=== PATIENT | female | born 1995 | race American Indian/Alaskan Native ===

== ENCOUNTER 2021-03-06 11:10 | Emergency (ER) | payer OTHER ==
[2021-03-06 11:26] VITALS: BP 100/65
--- NOTE | 2021-03-06 12:22 | Emergency Department Report ---
ED Syncope HPI - General Chief Complaint: Syncope Stated Complaint: WEAKNESS Time Seen by Provider: 03/06/21 11:57 Source: patient, RN notes reviewed Exam Limitations: no limitations - History of Present Illness Initial Comments: This is a 25-year-old female nontoxic, well nourished in appearance, no acute signs of distress presents to the ED with c/o of dizziness and headache x4 days. Patient stated she had a [facility]. Patient describes headache as diffuse with level of 8 out of 10. Patient denies thunderclap headache. Patient denies any visual changes. Patient denies worse headache. Patient stated that darkness makes headache better and bright lights make the headache worse. Patient denies any facial drooping or one-sided w eakness. Denies any slurred speech. Patient denies any radiation of pain. Patient denies any other symptoms or complaints. Patient stated the dizziness is worsened with position change. Patient denies any numbness, tingling, headache, stiff neck, chest pain, shortness of breathe, numbness or tingling. Denies any visual changes or blurry vision. Denies any drug allergies. Patient stated has history of syncopal episodes with last episode being last year. Patient brought by EMS and was given 1 L of normal saline which stated that she is feels much better. Timing/Prior Episodes: recent history Precipitating Factors: Positive: lightheadedness, pain. Negative: blurred vision, confusion, diaphoresis, injury, nausea, recent head trauma, rapid heart beat Loss of Consciousness: brief (seconds) Current Symptoms: back to normal, dizziness, headache, lightheadedness. denies: blurred vision, chest pain, diaphoresis, injury, loss of bladder control, loss of bowel control, motionless, nausea, pale, shallow/rapid breathing, weak/absent pulse, weakness - Related Data Allergies/Adverse Reactions: Allergies No Known Allergies Allergy (Unverified 03/06/21 11:25) ED Review of Systems ROS: Stated complaint: WEAKNESS Other details as noted in HPI Comment: All other systems reviewed and negative Constitutional: denies: chills, fever Eyes: denies: eye pain, eye discharge, vision change ENT: denies: ear pain, throat pain Respiratory: denies: cough, shortness of breath, wheezing Cardiovascular: denies: chest pain, palpitations Endocrine: no symptoms reported Gastrointestinal: denies: abdominal pain, nausea, diarrhea Genitourinary: denies: urgency, dysuria, discharge Musculoskeletal: denies: back pain, joint swelling, arthralgia Skin: denies: rash, lesions Neurological: headache, vertigo. denies: weakness, numbness, paresthesias, confusion, abnormal gait Psychiatric: denies: anxiety, depression Hematological/Lymphatic: denies: easy bleeding, easy bruising ED Past Medical Hx - Past Medical History Previous Medical History?: Yes Hx Asthma: Yes - Surgical History Past Surgical History?: No ED Physical Exam - General Limitations: Language Barrier General appearance: alert, in no apparent distress - Head Head exam: Present: atraumatic, normocephalic - Eye Eye exam: Present: normal appearance, PERRL, EOMI - Neck Neck exam: Present: normal inspection, full ROM. Absent: tenderness, meningismus, lymphadenopathy, thyromegaly - Expanded Neck Exam Expanded Neck exam: Absent: tenderness, midline deformity, anterior neck swelling, thyroid mass, carotid bruit, tracheal deviation - Respiratory Respiratory exam: Present: normal lung sounds bilaterally. Absent: respiratory distress, wheezes, rales, rhonchi, stridor, chest wall tenderness, accessory muscle use, decreased breath sounds, prolonged expiratory - Cardiovascular Cardiovascular Exam: Present: regular rate, normal rhythm, normal heart sounds. Absent: bradycardia, tachycardia, irregular rhythm, systolic murmur, diastolic murmur, rubs, gallop - GI/Abdominal GI/Abdominal exam: Present: soft, normal bowel sounds. Absent: distended, tenderness, guarding, rebound, rigid, diminished bowel sounds - Extremities Exam Extremities exam: Present: normal inspection, full ROM, normal capillary refill. Absent: tenderness - Back Exam Back exam: Present: normal inspection, full ROM. Absent: tenderness, CVA tenderness (R), CVA tenderness (L), muscle spasm, paraspinal tenderness, vertebral tenderness, rash noted - Neurological Exam Neurological exam: Present: alert, oriented X3, normal gait - Expanded Neurological Exam Expanded Patient oriented to: Present: person, place, time Cranial nerves: EOM's Intact: Normal, Facial Sensation: Normal Cerebellar function: Finger to Nose: Normal Upper motor neuron: Pronator Drift: Normal, Sensory Extinction: Normal Motor strength exam: RUE: 5, LUE: 5, RLE: 5, LLE: 5 Best Eye Response (Josué): (4) open spontaneously Best Motor Response ([place]): (6) obeys commands Best Verbal Response ([place]): (5) oriented [place] Total: 15 - Psychiatric Psychiatric exam: Present: normal affect, normal mood - Skin Skin exam: Present: warm, dry, intact, normal color. Absent: rash ED Course Vital Signs 03/06/21 11:25 Temperature 99.2 F Pulse Rate 76 Respiratory 16 Rate Blood Pressure 100/65 [Right] O2 Sat by Pulse 98 Oximetry - Reevaluation(s) Reevaluation #1: 03/06/21 12:22 Patient is speaking in full sentences with no signs of distress noted. - Consultations Consultation #1: 03/06/21 14:38 Patient has been consulted with Dr. Pérez V about patient history, physical exam, and labs/imaging results and agrees to ED plan of care and discharge plan of care. ED Medical Decision Making - Lab Data Result diagrams: 03/06/21 12:15 03/06/21 12:15 Lab Results 03/06/21 03/06/21 03/06/21 Range/Units 12:15 12:15 12:15 WBC 6.2 (4.5-11.0) K/mm3 RBC 4.17 (3.65-5.03) M/mm3 Hgb 11.8 (10.1-14.3) gm/dl Hct 35.5 (30.3-42.9) % MCV 85 (79-97) fl MCH 28 (28-32) pg MCHC 33 (30-34) % RDW 13.2 (13.2-15.2) % Plt Count 190 (140-440) K/mm3 Lymph % (Auto) 22.5 (13.4-35.0) % [place] % (Auto) 9.8 H (0.0-7.3) % Eos % (Auto) 0.1 (0.0-4.3) % Baso % (Auto) 1.0 (0.0-1.8) % Lymph # (Auto) 1.4 (1.2-5.4) K/mm3 [place] # (Auto) 0.6 (0.0-0.8) K/mm3 Eos # (Auto) 0.0 (0.0-0.4) K/mm3 Baso # (Auto) 0.1 (0.0-0.1) K/mm3 Seg Neutrophils % 66.6 (40.0-70.0) % Seg Neutrophils # 4.2 (1.8-7.7) K/mm3 Sodium 137 (137-145) mmol/L Potassium 3.5 L (3.6-5.0) mmol/L Chloride 102.9 (98-107) mmol/L Carbon Dioxide 25 (22-30) mmol/L Anion Gap 13 mmol/L BUN 8 (7-17) mg/dL Creatinine 0.9 (0.6-1.2) mg/dL Estimated GFR > 60 ml/min BUN/Creatinine Ratio 9 % Glucose 80 (65-100) mg/dL Calcium 8.4 (8.4-10.2) mg/dL Magnesium 1.70 (1.7-2.3) mg/dL Total Bilirubin 0.20 (0.1-1.2) mg/dL AST 15 (5-40) units/L ALT 9 (7-56) units/L Alkaline Phosphatase 73 (35-129) units/L Total Protein 6.4 (6.3-8.2) g/dL Albumin 3.7 L (3.9-5) g/dL Albumin/Globulin Ratio 1.4 % HCG, Qual Negative (Negative) - EKG Data 03/06/21 15:10 Normal sinus rhythm at 65 bpm. No STEMI. Reviewed and signed by MD. - Radiology Data [facility] [address] [place] [address] Cat Scan Report Signed Patient: ROBIN SETH MR#: [id number] 9 : 1995 Acct:[id number] Age/Sex: 25 / F ADM Date: 03/06/21 Loc: ED Attending Dr: Ordering Physician: SORAYA CASTELLANOS NP Date of Service: 03/06/21 Procedure(s): CT head/brain wo con Accession Number(s): [id number] cc: SORAYA CASTELLANOS NP CT HEAD WITHOUT CONTRAST INDICATION / CLINICAL INFORMATION: Syncope. Headache TECHNIQUE: All CT scans at this location are performed using CT dose reduction for ALARA by means of automated exposure control. COMPARISON: None available. FINDINGS: HEMORRHAGE: None. EXTRA-AXIAL SPACES: Normal in size and morphology for the patient's age. VENTRICULAR SYSTEM: Normal in size and morphology for the patient's age. CEREBRAL PARENCHYMA: No significant abnormality. No acute territorial infarct. MIDLINE SHIFT OR HERNIATION: None. CEREBELLUM / BRAINSTEM: No significant abnormality. ORBITS: Normal as visualized. SOFT TISSUES of HEAD: No significant abnormality. CALVARIUM: No significant abnormality. PARANASAL SINUSES / MASTOID AIR CELLS: Normal as visualized. ADDITIONAL FINDINGS: None. IMPRESSION: 1. No acute intracranial abnormality. Signer Name: Michele Castillo MD Signed: 03/06/2021 2:08 PM Workstation Name: [id number] Transcribed By: TL Dictated By: Michele Castillo MD Electronically Authenticated By: Michele Castillo MD Signed Date/Time: 03/06/21 1408 DD/ 06 TD/TT: [address] [address] XRay Report Signed Patient: ROBIN SETH MR#: [id number] 9 : 1995 Acct:[id number] Age/Sex: 25 / F ADM Date: 03/06/21 Loc: ED Attending Dr: Ordering Physician: SROAYA CASTELLANOS NP Date of Service: 03/06/21 Procedure(s): XR chest 1V ap Accession Number(s): [id number] cc: SORAYA CASTELLANOS NP Fluoro Time In Minutes: CHEST 1 VIEW 03/06/2021 1:05 PM INDICATION / CLINICAL INFORMATION: syncope. COMPARISON: None available. FINDINGS: SUPPORT DEVICES: None. HEART / MEDIASTINUM: No significant abnormality. LUNGS / PLEURA: No significant p ulmonary or pleural abnormality. No pneumothorax. ADDITIONAL FINDINGS: No significant additional findings. IMPRESSION: 1. No acute findings. Signer Name: Michele Castillo MD Signed: 03/06/2021 2:14 PM Workstation Name: [id number] Transcribed By: TL Dictated By: Michele Castillo MD Electronically Authenticated By: Michele Castillo MD Signed Date/Time: 03/06/21 141 DD/ 141 TD/TT: [address] [place] [address] Cat Scan Report Signed Patient: ROBIN SETH MR#: [id number] 9 : 1995 Acct:[id number] Age/Sex: 25 / F ADM Date: 03/06/21 Loc: ED Attending Dr: Ordering Physician: SORAYA CASTELLANOS NP Date of Service: 03/06/21 Procedure(s): CT cervical spine wo con Accession Number(s): [id number] cc: SORAYA CASTELLANOS NP CT CERVICAL SPINE WITHOUT CONTRAST INDICATION: Syncope. Neck pain TECHNIQUE: All CT scans at this location are performed using CT dose reduction for ALARA by means of automated exposure control. Axial CT images were obtained through the cervical spine. Sagittal and coronal reformatted images were produced. COMPARISON: None available. FINDINGS: Fracture: None. Subluxation: None. Spinal canal: No significant compromise. Disc spaces: Normal. Facet joints: Normal. Paraspinal soft tissues: No soft tissue swelling. Normal. Additional findings: None. Lung apices: Normal. IMPRESSION: 1. No acute findings. Signer Name: Michele Castillo MD Signed: 03/06/2021 2:07 PM Workstation Name: [id number] Transcribed By: TL Dictated By: Michele Castillo MD Electronically Authenticated By: Michele Castillo MD Signed Date/Time: 03/06/211406 DD/ 03 TD/TT: - Medical Decision Making This is a 25-year-old female that presents with syncope with dizziness and headache. Patient is stable and was examined by me. EKG is normal sinus rhythm with no ST abnormalities. Labs are unremarkable. Orthostatic vital signs obtained and within normal limits. Patient is notified of the imaging results with no questions noted by the patient. Patient received 2 L of normal saline which she stated his symptoms of dizziness has subsided and resolved. Patient is neurologically stable. Patient is neurologically stable. There is no stiff neck or neck pain. Vital signs are stable. Patient is afebrile. Patient stated headache has resolved and subsided as well. Patient was instructed to Follow-up with a primary care doctor in 3-5 days or if symptoms worsen and continue return to emergency room as soon as possible. At time of discharge, the patient does not seem toxic or ill in appearance. No acute signs of distress noted. Patient agrees to discharge treatment plan of care. No further questions noted by the patient. Critical care attestation.: If time is entered above; I have spent that time in minutes in the direct care of this critically ill patient, excluding procedure time. ED Disposition Clinical Impression: Dizziness Syncope Qualifiers: Syncope type: unspecified Qualified Code(s): R55 - Syncope and collapse Headache Qualifiers: Headache type: unspecified Headache chronicity pattern: acute headache Intractability: not intractable Qualified Code(s): R51.9 - Headache, unspecified Disposition: DC-01 TO HOME OR SELFCARE Is pt being admited?: No Does the pt Need Aspirin: No Condition: Stable Instructions: Dizziness, Syncope, Syncope (ED) Additional Instructions: Follow-up with a primary care doctor in 3-5 days or if symptoms worsen and continue return to emergency room as soon as possible. Referrals: PRIMARY MD JAMEEL [Primary Care Provider] - 3-5 Days JAI GONZALEZ MD [Staff Physician] - 3-5 Days Forms: Work/School Release Form(ED) Time of Disposition: 14:51
[2021-03-06] MEDS ORDERED: SODIUM CHLORIDE 0.9% 1000 ML 1,000 ML IV ONE (12:24)
[2021-03-06 12:35] LABS: Basophils # (Auto) 0.1 K/mm3 (0.0-0.1); Eosinophils % (Auto) 0.1 % (0.0-4.3); Hematocrit 35.5 % (30.3-42.9); Hemoglobin 11.8 gm/dl (10.1-14.3); Lymphocytes # (Auto) 1.4 K/mm3 (1.2-5.4); Lymphocytes % (Auto) 22.5 % (13.4-35.0); Mean Corpuscular HGB Conc 33 % (30-34); Mean Corpuscular Volume 85 fl (79-97); Monocytes # (Auto) 0.6 K/mm3 (0.0-0.8); Monocytes % (Auto) 9.8 % (0.0-7.3); Platelet Count 190 K/mm3 (140-440); Red Blood Count 4.17 M/mm3 (3.65-5.03); Red Cell Distribution Width 13.2 % (13.2-15.2)
[2021-03-06 12:52] LABS: Alanine Aminotransferase 9 units/L (7-56); Albumin 3.7 g/dL (3.9-5); BUN/Creatinine Ratio 9; Blood Urea Nitrogen 8 mg/dL (7-17); Calcium 8.4 mg/dL (8.4-10.2); Hemolysis Index 1
[2021-03-06] MEDS ORDERED: ACETAMINOPHEN 500 MG TAB PO ONE (13:59)
--- NOTE | 2021-03-06 14:11 | Cat Scan Report ---
CT CERVICAL SPINE WITHOUT CONTRAST INDICATION: Syncope. Neck pain TECHNIQUE: All CT scans at this location are performed using CT dose reduction for ALARA by means of automated e xposure control. Axial CT images were obtained through the cervical spine. Sagittal and coronal reformatted images we re produced. COMPARISON: None available. FINDINGS: Fracture: None. Subluxation: None. Spinal canal: No significant compromise. Disc spaces: Normal. Facet joints: Normal. Paraspinal soft tissues: No soft tissue swelling. Normal. Additional findings: None. Lung apices: Normal. IMPRESSION: 1. No acute findings. Signer Name: Michele Castillo MD Signed: 03/06/2021 2:07 PM Workstation Name: [id number]
--- NOTE | 2021-03-06 14:13 | Cat Scan Report ---
CT HEAD WITHOUT CONTRAST INDICATION / CLINICAL INFORMATION: Syncope. Headache TECHNIQUE: All CT scans at this location are performed using CT dose reduction for ALARA by means of automated e xposure control. COMPARISON: None available. FINDINGS: HEMORRHAGE: None. EXTRA-AXIAL SPACES: Normal in size and morphology for the patient's age. VENTRICULAR SYSTEM: Normal in size and morphology for the patient's age. CEREBRAL PARENCHYMA: No significant abnormality. No acute territorial infarct. MIDLINE SHIFT OR HERNIATION: None. CEREBELLUM / BRAINSTEM: No significant abnormality. ORBITS: Normal as visualized. SOFT TISSUES of HEAD: No significant abnormality. CALVARIUM: No significant abnormality. PARANASAL SINUSES / MASTOID AIR CELLS: Normal as visualized. ADDITIONAL FINDINGS: None. IMPRESSION: 1. No acute intracranial abnormality. Signer Name: Michele Castillo MD Signed: 03/06/2021 2:08 PM Workstation Name: [id number]
--- NOTE | 2021-03-06 14:18 | XRay Report ---
CHEST 1 VIEW 03/06/2021 1:05 PM INDICATION / CLINICAL INFORMATION: syncope. COMPARISON: None available. FINDINGS: SUPPORT DEVICES: None. HEART / MEDIASTINUM: No significant abnormality. LUNGS / PLEURA: No significant pulmonary or pleural abnormality. No pneumothorax. ADDITIONAL FINDINGS: No significant additional findings. IMPRESSION: 1. No acute findings. Signer Name: Michele Castillo MD Signed: 03/06/2021 2:14 PM Workstation Name: [id number]
--- NOTE | 2021-03-07 14:31 | Electrocardiograph Report ---
[facility] Test Date: 2021-03-06 Test Time: 15:04:53 Pat Name: ROBIN SETH Department: Room: Gender: F Financial Investigator: UBALDO : 1995 Requested By: SORAYA CASTELLANOS Order Number: [id number] Reading MD: Mukesh Barry Measurements Intervals [place] Rate: 65 P: 28 WI: 166 QRS: 34 QRSD: 95 T: 37 QT: 399 QTc: 417 Interpretive Statements Sinus rhythm No previous ECG available for comparison Electronically Signed On 03-07-2021 14:31:31 EDT by Mukesh Barry
== END 2021-03-06 14:52 | disposition home or self-care (01) ==
LOC: ED 11:10
DX: R42 Dizziness and giddiness (principal); R55 Syncope and collapse; J45.909 Unspecified asthma, uncomplicated
CPT/HCPCS: 36415; 70450; 71045; 72125; 80053; 83735; 84703; 85025; 93005; 99284; J7030; 96360; 96361